=== PATIENT | male | born 1950 | race Caucasian/White ===

== ENCOUNTER 2020-11-22 07:47 | Outpatient (CLI) | payer MEDICARE | END 2020-11-22 07:48 | disposition home or self-care (01) | LOC: DI 07:47 | PROVIDERS: ATTEND Nurse Practitioner Family | DX: I49.9 Cardiac arrhythmia, unspecified (principal); I35.1 Nonrheumatic aortic (valve) insufficiency; I51.7 Cardiomegaly | CPT/HCPCS: 93306 ==

== ENCOUNTER 2021-05-03 15:01 | Outpatient (CLI) | payer MEDICARE ==
--- NOTE | 2021-05-03 15:45 | XRAY Report ---
PROCEDURE: Chest 2 View X-Ray INDICATIONS: CHEST XRAY TECHNIQUE: 2 view(s) of the chest. COMPARISON: None. FINDINGS: Surgical changes and devices: Changes of median sternotomy with aortic valvuloplasty and CABG. Lungs and pleura: No pleural effusions or pneumothorax. Lungs are clear. Mediastinum: Mediastinal contours are normal. Heart size is normal. Bones and chest wall: No suspicious bony abnormalities. Soft tissues appear unremarkable. IMPRESSION: No acute cardiopulmonary process demonstrated. Reviewed by: Yasmany Smith MD on 05/03/2021 3:44 PM PST Approved by: Yasmany Smith MD on 05/03/2021 3:44 PM PST Station ID: [id number]
== END 2021-05-03 15:02 | disposition home or self-care (01) ==
LOC: DI.S 15:01
PROVIDERS: ATTEND Nurse Practitioner Family
DX: J90 Pleural effusion, not elsewhere classified (principal)

== ENCOUNTER 2021-06-26 07:55 | Outpatient (CLI) | payer MEDICARE | END 2021-06-26 07:56 | disposition home or self-care (01) | LOC: DI 07:55 | PROVIDERS: ATTEND Internal Medicine Cardiovascular Disease | DX: I35.1 Nonrheumatic aortic (valve) insufficiency (principal); Z95.1 Presence of aortocoronary bypass graft; I49.3 Ventricular premature depolarization; I51.7 Cardiomegaly; I77.810 Thoracic aortic ectasia | CPT/HCPCS: 93306 ==

== ENCOUNTER 2022-05-06 07:58 | Outpatient (CLI) | payer MEDICARE ==
--- NOTE | 2022-05-06 15:07 | CT Report ---
PROCEDURE: ANGIO CHEST W/WO INDICATIONS: S/P AORTIC VALVE REPLACEMENT, AAA CONTRAST: 100ml Omnipaque 300 TECHNIQUE: After the administration of intravenous contrast, 2 mm axial images were acquired from the pulmonary apices to the posterior costophrenic angles during the arterial phase. In addition, 1 mm lung kernel and 5 mm soft tissue kernel reconstructions were performed. 3-dimensional coronal oblique maximum int ensity projection (MIP) reformats, 8 mm axial MIP, and 5 mm coronal and sagittal MPR reformats were t hen performed through the thorax. For radiation dose reduction, the following was used: automated exp osure control, adjustment of mA and/or kV according to patient size. COMPARISON: CT abdomen and pelvis from today FINDINGS: Image quality: Excellent. Aorta and its attachments: Mechanical aortic valve prosthesis. Ascending aorta is normal in caliber, measuring 3.8 mm. No stenosis, aneurysm, or dissection. Arch and descending thoracic aorta are normal in caliber. Proximal abdominal aorta is normal in caliber. There is classic three-vessel arch anatom y. Great vessel origins are widely patent. Celiac, SMA, and bilateral renal arteries are widely paten t. Pulmonary arteries: Pulmonary arteries are normal in size, and demonstrate no intraluminal filling d efects to suggest central pulmonary embolism. Lungs and pleura: Lungs are clear. No pleural effusions or pneumothorax. Central and peripheral ai rways are patent. Mediastinum: Heart size is normal, without pericardial effusion. Remote CABG and aortic valve repla cement. Moderate coronary artery calcifications. No mediastinal or hilar adenopathy. Thoracic aorta is normal in caliber and enhancement. Esophagus is normal in caliber, without hiatal hernia. Bones and chest wall: No suspicious bony lesions. Ribs and thoracic spine appear intact throughout. No axillary or supraclavicular adenopathy. Thyroid contains a 1.5 cm left thyroid nodule. Abdomen: Visualized upper abdominal solid organs appear normal in the early arterial phase of enhanc ement. IMPRESSION: 1. Thoracic aorta is normal in caliber, unremarkable. 2. Remote CABG and aortic valve replacement, moderate coronary artery calcifications. 3. No evidence of acute process in the chest. 4. 1.5 cm left thyroid nodule. Comment: Please refer to separate report for findings in the abdomen and pelvis. CLINICAL RECOMMENDATION STATEMENTS: In patients <35 years with an ITN detected on CT, MRI, or extrathyroidal ultrasound, the Committee re commends further evaluation with dedicated thyroid ultrasound if the nodule is "e1 cm and has no susp icious imaging features, and if the patient has normal life expectancy. In patients "e35 years with an ITN detected on CT, MRI, or extrathyroidal ultrasound, the Committee r ecommends further evaluation with dedicated thyroid ultrasound if the nodule is "e1.5 cm and has no s uspicious imaging features, and if the patient has normal life expectancy. (ACR, 2014) Reviewed by: Siva Manzo MD on 05/06/2022 3:06 PM PST Approved by: Siva Manzo MD on 05/06/2022 3:06 PM PST Station ID: [id number]
--- NOTE | 2022-05-06 15:27 | CT Report ---
PROCEDURE: ANGIO ABDOMEN/PELVIS W INDICATIONS: S/P AORTIC VALVE REPLACEMENT, AAA CONTRAST: 100ml Omnipaque 300 TECHNIQUE: After the administration of intravenous contrast, 2.5 mm thick sections acquired from the diaphragm t o the symphysis. 10 mm maximum-intensity projection (MIP) reformats were then acquired. For radiati on dose reduction, the following was used: automated exposure control, adjustment of mA and/or kV ac cording to patient size. COMPARISON: CTA chest from today FINDINGS: Image quality: Excellent. Aorta: Normal caliber without significant atherosclerotic plaque. Mild calcifications. Iliacs and co mmon femorals and proximal SFAs are widely patent. 2 right renal arteries and a single left renal art gabriela are widely patent. Mesenteric arteries: Celiac trunk, superior and inferior mesenteric arteries appear patent. Right pelvic arteries: Widely patent Left pelvic arteries: Widely patent Extravascular soft tissues: Lung bases are clear. Heart size is normal. Liver and spleen are angela l in size and enhancement. Gallbladder is contracted, within normal limits. Biliary system is non d ilated. Pancreas enhances normally. No adrenal nodules. Kidneys are normal in size and enhancement , without hydronephrosis. Non opacified bowel loops are normal in wall thickness and caliber. No fr ee fluid or air. No retroperitoneal or mesenteric adenopathy. No ventral hernias. No suspicious renetta ny lesions. No vertebral body compression fractures. Nonunited left L2, L3, and L4 transverse proces s fractures. Lumbar degenerative change. Small fat-containing right inguinal hernia. IMPRESSION: 1. Unremarkable abdominal aorta and its attachments. 2. No evidence of acute abdominal process. 3. Chronic, nonunited left L2, L3, and L4 transverse process fractures. Reviewed by: Siva Manzo MD on 05/06/2022 3:25 PM PST Approved by: Siva Manzo MD on 05/06/2022 3:25 PM PST Station ID: [id number]
== END 2022-05-06 07:59 | disposition home or self-care (01) ==
LOC: LAB 07:58
PROVIDERS: ATTEND Thoracic Surgery (Cardiothoracic Vascular Surgery)
DX: I71.21 Aneurysm of the ascending aorta, without rupture (principal); Z95.2 Presence of prosthetic heart valve; Z95.1 Presence of aortocoronary bypass graft; I25.10 Atherosclerotic heart disease of native coronary artery without angina pectoris; E04.1 Nontoxic single thyroid nodule; M48.56XG Collapsed vertebra, not elsewhere classified, lumbar region, subsequent encounter for fracture with delayed healing

== ENCOUNTER 2022-05-06 07:59 | Outpatient (CLI) | payer MEDICARE ==
[2022-05-06] MEDS ORDERED: iohexoL-300 100 ML VIAL ONE (08:56)
[2022-05-06 09:25] LABS: CREATININE 0.9 mg/dL (0.6-1.2)
[2022-05-06] MEDS: iohexoL-300 100 ML VIAL IVP ONE (12:05)
== END 2022-05-06 08:00 | disposition home or self-care (01) ==
LOC: DI 07:59
PROVIDERS: ATTEND Internal Medicine Cardiovascular Disease
DX: I25.10 Atherosclerotic heart disease of native coronary artery without angina pectoris (principal); Z95.2 Presence of prosthetic heart valve; I51.7 Cardiomegaly; I71.21 Aneurysm of the ascending aorta, without rupture; Z95.1 Presence of aortocoronary bypass graft; E04.1 Nontoxic single thyroid nodule; M48.56XG Collapsed vertebra, not elsewhere classified, lumbar region, subsequent encounter for fracture with delayed healing
CPT/HCPCS: 36415; 71275; 74174; 82565; 93306; Q9967